=== PATIENT | female | born 1935 | race Caucasian/White ===

== ENCOUNTER → 2016-08-25 | Outpatient (CLI) | payer OTHER, BC ==
[~2016-08-25] VITALS: Ht 152.4 cm; Wt 72.0 kg
[~2016-08-25] MED LIST: ADULT LOW DOSE81 MG PO; ALDACTONE25 MG PO; ASA5UEC PO; ATIVAN0.5 MG PO; BENICAR HCT 201 EACH; BIOTIN2500 MCG PO; BUTALB-ACETAMI1 EACH PO; BYSTOLIC20 MG PO; CARDURA8 MG PO; CIPRO250 MG; CLARITIN10 MG PO; COZAAR100 MG PO; DEXILANT60 MG PO; DOCUSATE SODIU100 MG PO; FIORINAL 50-321 EACH PO; FLONASE 0.05%50 MCG NASAL; FLOVENT DISKUS50 MCG IH; IBUPROFEN 200200 M1 PO; K-DUR10 ME1; KLOR-CON 10 ER10 MEQ PO; LORTAB 5 MG/5001 TA1 PO; MACRODANTIN100 MG PO; METAMUCIL1 EAC1 PO; NORVASC10 MG PO; PEPCID AC20 M1 PO; PROBIOTIC1 EAC1 PO; SPIRONOLACTONE25 M1 PO; TUMS CHEWA500 MG/11 PO; VITAMIN D-32000 UNIT PO
--- NOTE | ~2016-08-25 | HPC ---
[facility] [place] [address] PAIN MANAGEMENT CONSULTATION Name: ANTWAN MATHEWS Room #: REG OSWALDO Escudero#: [id number] Admission: 08/25/16 Attend Phys: Booker Nino MD Discharge: Date of : 35 Report #: [id number] THIS REPORT FOR: //name// CC: Daniel Nino DATE OF SERVICE: 08/25/2016 Followup visit for low back pain with radiculopathy secondary to spondylolisthesis. The patient returns to pain clinic today for lumbar epidural injection. She has an L4 on L5 grade 1 spondylolisthesis with pain that radiates in the dermatomal distribution of L4 and L5. She has always had good response to her injections and she reports that her most recent injection provided months and months of pain relief. The pain is now returning and she would like another injection. Pain is worse with standing and weightbearing. She continues to do exercise on daily basis and likes to do pool therapy. I am not providing any medication for her pain at this time. MEDICATIONS: Reviewed and reconciled. She has some Fiorinal, which she uses for headaches and occasional Tylenol, but no other medication for severe pain. ALLERGIES: None. PHYSICAL EXAMINATION: She is a juan josé 81-year-old pleasant, alert and oriented. Her blood pressure is 135/88, heart rate is 88. She moves from a sitting to standing position, can ambulate independently. She has some limitations in range of motion. Straight leg raising reproduces pain bilaterally in the lower extremities following an L5-S1 distribution. IMPRESSION: Low back pain with radiculopathy with lumbar L4-L5 spondylolisthesis. RECOMMENDATION: Epidural steroid injection under fluoroscopic guidance. PROCEDURE: She was taken to the fluoroscopic suite, placed prone, skin prepped with ChloraPrep. Skin anesthetized over L4-L5. A 20-gauge Tuohy epidural needle was advanced in the epidural space with loss of resistance. No blood or CSF aspirated. 1 mL of Omnipaque was injected. Good spread of dye observed into the epidural space followed by 3 mL of 0.5% lidocaine mixed with 80 mg of triamcinolone. She tolerated the procedure well and was observed for 45 minutes and discharged. [facility] [address] [place] [address] PAIN MANAGEMENT CONSULTATION Name: ANTWAN MATHEWS Room #: REG [facility].#: [id number] Admission: 08/25/16 Attend Phys: Booker Nino MD Discharge: Date of : 35 Report #: [id number] Follow up visit planned as needed. By: [id number] Booker Nino MD /nt
[2016-08-25 13:22] VITALS: BP 147/77
== END | disposition home or self-care (01) ==
LOC: PAIN 07:29
DX: M54.16 Radiculopathy, lumbar region (principal); M43.16 Spondylolisthesis, lumbar region

== ENCOUNTER → 2017-10-23 | Outpatient (CLI) | payer OTHER, BC ==
[~2017-10-23] VITALS: Ht 152.4 cm; Wt 67.2 kg
[~2017-10-23] MED LIST changes: +GLUCOPHAGE XR500 MG PO
--- NOTE | ~2017-10-23 | HPC ---
[facility] [place] [place] [address] PAIN MANAGEMENT CONSULTATION Name: ANTWAN MATHEWS Room #: REG [facility] Chantal.#: [id number] Admission: 10/23/17 Attend Phys: Booker Nino MD Discharge: Date of : 35 Report #: [id number] THIS REPORT FOR: //name// CC: Daniel Nino DATE OF SERVICE: 10/23/2017 Followup visit for low back pain with radiculopathy secondary to grade 1 spondylolisthesis. The patient was last seen in the pain clinic over a year ago. She received an epidural injection at that time and pain is now returning. She was really a fine responder to these injections and the pain relief she gets is extensive and prolonged. She would like another injection today. PQRS review shows this is a pleasant 82-year-old female who is not a fall risk at this time. She is not on any blood thinners, but she is treated for hypertension. All medications were reviewed and reconciled. She takes no opioid medication. Weight has been well controlled, BMI of 28.9. PHYSICAL EXAMINATION: VITAL SIGNS: Blood pressure 140/61, heart rate 78, respirations 16. NEUROLOGIC: She moves from sitting to standing position, ambulates with mild antalgic features to her gait. She has straight leg raising pain bilaterally, worse on the right than the left; it radiates into her leg, right worse than left. IMPRESSION: Chronic low back pain with radiculopathy secondary to L4-L5 spondylolisthesis. PROCEDURE: Epidural steroid injection under fluoroscopic guidance. PROCEDURE: She was taken to fluoroscopic suite for treatment. She was placed prone, skin prepped with ChloraPrep. Skin anesthetized over the L4-L5 interspace. A 20-gauge Tuohy epidural needle advanced into the epidural space with [id number] technique. There was no blood and no CSF aspirated. 1 mL of Omnipaque injected. Spread of dye observed in the epidural space followed by 3 mL of 0.5% lidocaine mixed with 80 mg of triamcinolone. She tolerated the procedure well and was observed for a short time. Pain score was 1. Followup visit planned as needed. By: [id number] [id number] Booekr Nino MD /nt
[2017-10-23 14:01] VITALS: BP 140/61
== END | disposition home or self-care (01) ==
LOC: PAIN 06:48
DX: M48.061 Spinal stenosis, lumbar region without neurogenic claudication (principal); M54.16 Radiculopathy, lumbar region; G89.29 Other chronic pain; I10 Essential (primary) hypertension; Z88.0 Allergy status to penicillin; Z88.2 Allergy status to sulfonamides; Z88.8 Allergy status to other drugs, medicaments and biological substances; Z79.899 Other long term (current) drug therapy

== ENCOUNTER → 2018-11-08 | Outpatient (CLI) | payer OTHER, BC ==
[~2018-11-08] VITALS: Ht 152.4 cm; Wt 67.3 kg
--- NOTE | ~2018-11-08 | HPC ---
[facility] [place] [address] PAIN MANAGEMENT CONSULTATION Name: ANTWAN MATHEWS Room #: REG OSWALDO Cornejo.#: [id number] Admission: 11/08/18 ������������������ Attend Phys: Booker Nino MD Discharge: ������������������ Date of : 35 Report #: [id number] THIS REPORT FOR: //name// CC: Dipak Nino DATE OF SERVICE: 11/08/2018 Followup visit for chronic low back pain with radiculopathy secondary to grade 1 spondylolisthesis. The delightful patient is here today with her daughter. She is seen on roughly a 1-year interval. She responds nicely to epidural steroid injections, providing her with months of improvement in her pain relief and improvement in day-to-day activities. She is here today for the injection. Unfortunately, she has recently had the new shingles vaccine. We have been cautious about providing high dose steroid injection during this interval with the thought that this may interfere with the immune response. I have elected to postpone her injection for another week. She reports today that her greatest pain comes with prolonged walking. She is comfortable in a sitting position and has some pain at night when she rolls in bed. She has had increased pain in the last 2-3 weeks. Most of the pain radiates in a radicular distribution down the right posterior thigh and also she has bilateral pain in the ischial region. She complains of some tingling in both feet. It is a bit asymmetrical and does not sound like classic diabetic neuropathy. She was recently diagnosed with type 2 diabetes. She has been well controlled; however, and her A1c is less than 5.5. PQRS: 1. Reveals no significant complaints of osteoarthritis. 2. Her BMI is 29.3. 3. Vital signs: Blood pressure 138/58, heart rate 64, respirations 16, O2 sat 98. 4. Pain intensity is 6/10. 5. She is not a fall risk. 6. She is on no blood thinners. 7. She takes medications for hypertension. MEDICATIONS: All medications were reviewed and reconciled from the electronic medical record. She is taking amlodipine on a daily basis as well as spironolactone and . She takes no opioid medications. SOCIAL HISTORY: She denies use of tobacco and alcohol. [address] [address] PAIN MANAGEMENT CONSULTATION Name: ANTWAN MATHEWS Jesusita Room #: REG [facility] Chantal.#: [id number] Admission: 11/08/18 ������������������ Attend Phys: Booker Nino MD Discharge: ������������������ Date of : 35 Report #: [id number] IMPRESSION: Chronic low back pain with radiculopathy secondary to L4-L5 spondylolisthesis. She has responded very nicely to an annual epidural steroid injection. PLAN: We will repeat the injection at her followup visit scheduled in 1 week. Procedure was reviewed and explained, questions answered. ��������������������������������������������� ���������������������������������������� By: ��������������������������������������������� [id number] Booker Nino MD /hunter
[2018-11-08 15:25] VITALS: BP 138/58
--- NOTE | 2018-11-08 15:53 | NUR ---
Pain Clinic Assessment: 1. History of Osteoarthritis: Not Applicable History of Rheumatoid Arthritis: Not Applicable 2. Height: 5 ft. 0 in. 152.4 cm. Weight: 148.4 lb. oz. 67.314 kg. Patient's BMI: 29.0 3. Vital Signs: BP: 138/58 Pulse: 64 Resp: 16 Temp: 02 Sat: 98 ECG Mon: 4. Pain Intensity: 6 5. Fall Risk: Dizziness: N Needs help standing or walking: N Fallen in the last 3 months: N Fall risk comments: 6. Patient on Blood Thinner: None 7. History of Hypertension: Y 8. Opioid Therapy greater than 6 weeks: N Opiate Contract Signed: 9. Risk Assessment Tool Provided: low-0 10. Functional Assessment Tool: 70 11. Recreational Drug Use: Never Drug Type: Tobacco Use: Never Smoker Tobacco Type: Amount or Packs/day: How Many Years: Alcohol Use: No Frequency: Quant:
== END ==
LOC: PAIN 12:27
DX: M43.16 Spondylolisthesis, lumbar region (principal); M54.16 Radiculopathy, lumbar region; Z79.899 Other long term (current) drug therapy

== ENCOUNTER → 2018-11-15 | Outpatient (CLI) | payer OTHER, BC ==
[~2018-11-15] VITALS: Ht 152.4 cm; Wt 69.1 kg
[~2018-11-15] MED LIST changes: +SHINGRIX V50 MCG/0.5 IM
--- NOTE | ~2018-11-15 | HPC ---
[facility] [place] [address] PAIN MANAGEMENT CONSULTATION Name: ANTWAN MATHEWS Room #: REG OSWALDO Escudero#: [id number] Admission: 11/15/18 ������������������ Attend Phys: Booker Nino MD Discharge: ������������������ Date of : 35 Report #: [id number] THIS REPORT FOR: //name// CC: Dipak GARRETT DATE OF SERVICE: 11/15/2018 Followup visit for L4-L5 lumbar spondylosis with radiculopathy. The patient returns to pain clinic today for an epidural injection. She has pain radiating down the L4-L5 and L5-S1 distribution. She has an L4-L5 grade 1 spondylolisthesis. We were unable to perform the injection on 11/08/2018. She is here today for the injection. There have been no changes. IMPRESSION: Lumbar radiculopathy secondary to L4-L5 spondylolisthesis. PROCEDURE: Epidural steroid injection under fluoroscopic guidance. She was taken to fluoroscopic suite, placed prone, skin prepped with ChloraPrep. Skin anesthetized over the L4-L5 interspace. A 20-gauge Tuohy epidural needle advanced first attempt in the epidural space with loss of resistance. There was no blood or CSF aspirated. A 1 mL of Omnipaque injected with good spread of dye observed in the epidural space followed by 3 mL of 0.5% lidocaine mixed with 80 mg of triamcinolone. She tolerated the procedure well and was observed for 45 minutes and discharged. Followup visit as needed. ��������������������������������������������� ���������������������������������������� By: ��������������������������������������������� [id number] Booker Nino MD /nt
[2018-11-15 12:25] VITALS: BP 134/70
--- NOTE | 2018-11-15 12:29 | NUR ---
Pain Clinic Assessment: 1. History of Osteoarthritis: Not Applicable History of Rheumatoid Arthritis: Not Applicable 2. Height: 5 ft. 0 in. 152.4 cm. Weight: 152.4 lb. oz. 69.128 kg. Patient's BMI: 29.8 3. Vital Signs: BP: 134/70 Pulse: 62 Resp: 16 Temp: 02 Sat: ECG Mon: 4. Pain Intensity: 6 5. Fall Risk: Dizziness: N Needs help standing or walking: N Fallen in the last 3 months: N Fall risk comments: 6. Patient on Blood Thinner: None 7. History of Hypertension: Y 8. Opioid Therapy greater than 6 weeks: N Opiate Contract Signed: 9. Risk Assessment Tool Provided: low-0 10. Functional Assessment Tool: 11. Recreational Drug Use: Never Drug Type: Tobacco Use: Never Smoker Tobacco Type: Amount or Packs/day: How Many Years: Alcohol Use: No Frequency: Quant:
== END | disposition home or self-care (01) ==
LOC: PAIN 06:56
DX: M43.16 Spondylolisthesis, lumbar region (principal); M54.16 Radiculopathy, lumbar region; Z88.0 Allergy status to penicillin; Z88.2 Allergy status to sulfonamides; Z88.8 Allergy status to other drugs, medicaments and biological substances; Z79.899 Other long term (current) drug therapy; Z79.84 Long term (current) use of oral hypoglycemic drugs

== ENCOUNTER → 2018-12-10 | Outpatient (CLI) | payer OTHER, BC ==
[~2018-12-10] VITALS: Ht 152.4 cm; Wt 66.4 kg
--- NOTE | ~2018-12-10 | HPC ---
[facility] [place] [address] PAIN MANAGEMENT CONSULTATION Name: ANTWAN MATHEWS Room #: REG OSWALDO Kota#: [id number] Admission: 12/10/18 Attend Phys: Booker Nino MD Discharge: Date of : 35 Report #: [id number] THIS REPORT FOR: //name// CC: Physician staff Booker GARRETT DATE OF SERVICE: 12/10/2018 Followup visit for lumbar radiculopathy. The patient returns to pain clinic today for a second epidural steroid injection. She has responded nicely to epidural injections over the years. Her first injection was in 2013. She had 2 injections in 2014, but every year thereafter, she had a single injection and treatment. Her injection helped, but does not feel this has helped as much as previous injections. We reviewed films and all of her injections have been performed at L4-L5. Given her limited response to the first injection and pain in L4-L5, I have agreed today that we should repeat the injection. PQRS was completed once again. 1. No history of osteoarthritis. 2. BMI of 28.6. 3. Vital signs 132/62, heart rate 73, respirations 16. 4. Pain intensity 4/10. 5. She is not a fall risk. 6. She is on no blood thinners. 7. No history of hypertension. 8. She takes no opioids. 9. She is at low risk for addiction. 10. Functional assessment tool was not completed. She denies tobacco and alcohol. PHYSICAL EXAMINATION: Moves from sitting to standing position with mildly antalgic gait. She has some tenderness across her low back. She complains of some slight decrease in sensation in both feet. Normal strength is noted. IMPRESSION: 1. Lumbar radiculopathy secondary to L4-L5 spondylolisthesis. 2. Spinal stenosis. RECOMMENDATION: Epidural steroid injection under fluoroscopic guidance. PROCEDURE: She was taken to fluoroscopic suite, placed prone, skin was prepped with ChloraPrep. Skin was anesthetized over the L4-L5 interspace and a 20-gauge Tuohy epidural needle advanced first attempt into the epidural space with loss [facility] [address] [place] [address] PAIN MANAGEMENT CONSULTATION Name: ANTWAN MATHEWS Room #: REG [facility] [id number] Admission: 12/10/18 Attend Phys: Booker Nino MD Discharge: Date of : 35 Report #: [id number] of resistance technique. There was no blood and CSF aspirated. A 1 mL of Omnipaque was injected. Good spread of dye observed in the epidural space followed by 3 mL of 0.5% lidocaine mixed with 80 mg triamcinolone. She tolerated the procedure well and was observed for 45 minutes and discharged. Followup visit planned as needed. By: [id number] 0025 Booker Nino MD /nt
[2018-12-10 11:25] VITALS: BP 132/62
--- NOTE | 2018-12-10 11:34 | NUR ---
Pain Clinic Assessment: 1. History of Osteoarthritis: Not Applicable History of Rheumatoid Arthritis: Not Applicable 2. Height: 5 ft. 0 in. 152.4 cm. Weight: 146.4 lb. oz. 66.407 kg. Patient's BMI: 28.6 3. Vital Signs: BP: 132/62 Pulse: 73 Resp: 16 Temp: 02 Sat: 100 ECG Mon: 4. Pain Intensity: 4-5 5. Fall Risk: Dizziness: N Needs help standing or walking: N Fallen in the last 3 months: N Fall risk comments: 6. Patient on Blood Thinner: None 7. History of Hypertension: Y 8. Opioid Therapy greater than 6 weeks: N Opiate Contract Signed: 9. Risk Assessment Tool Provided: low-0 10. Functional Assessment Tool: 70 11. Recreational Drug Use: Never Drug Type: Tobacco Use: Never Smoker Tobacco Type: Amount or Packs/day: How Many Years: Alcohol Use: No Frequency: Quant:
== END | disposition home or self-care (01) ==
LOC: PAIN 06:57
DX: M43.16 Spondylolisthesis, lumbar region (principal); M54.16 Radiculopathy, lumbar region; M48.061 Spinal stenosis, lumbar region without neurogenic claudication; G89.29 Other chronic pain; Z88.0 Allergy status to penicillin; Z88.2 Allergy status to sulfonamides; Z88.8 Allergy status to other drugs, medicaments and biological substances; Z79.899 Other long term (current) drug therapy; Z98.890 Other specified postprocedural states

== ENCOUNTER → 2019-03-25 | Outpatient (CLI) | payer OTHER, BC ==
[~2019-03-25] VITALS: Ht 152.4 cm; Wt 67.1 kg
[2019-03-25 11:34] LABS: ABSOLUTE NEUTROPHILS 6.1 thou/uL (1.4-8.2); BASOPHILS 1.9 % (0.0-2.0); EOSINOPHILS 9.2 % (0.0-3.0); HEMATOCRIT 31.5 % (37.0-47.0); HEMOGLOBIN 10.6 gm/dL (12.0-15.0); MCH 36.4 pg (26.0-34.0); MCHC 33.6 g/dL (28.0-37.0); MCV 108.3 fL (80.0-100.0); MONOCYTES 6.3 % (1.0-8.0); PLATELET COUNT 343 thou/uL (150-400); POLYS 66.6 % (36.0-66.0); RDW 18.9 % (10.5-14.5); WBC 9.2 thou/uL (4.0-11.0)
[2019-03-25 11:42] LABS: APTT 24.7 Seconds (24.5-32.8); CALCIUM 9.7 mg/dL (8.5-10.1); CREATININE 0.9 mg/dL (0.6-1.0); INR 1.1; POTASSIUM 4.1 mmol/L (3.5-5.1); PROTIME 11.2 Seconds (9.3-11.4)
[2019-03-25 11:48] LABS: ALBUMIN 4.3 g/dL (3.4-5.0); TOTAL BILIRUBIN 0.4 mg/dL (<0.1-1.0); TOTAL PROTEIN 7.1 g/dL (6.4-8.2)
[2019-03-25 11:52] VITALS: BP 127/48
[2019-03-25 11:52] LABS: ANISOCYTOSIS 2+; MACROCYTES 1+; PLATELET ESTIMATE NORMAL; POIKILOCYTOSIS 2+
--- NOTE | 2019-03-29 11:23 | P ---
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 HISTORY OF PRESENT ILLNESS: The patient is an 83-year-old female with history of sick sinus syndrome, whose device is near BIRELLE. We are performing a pacemaker generator exchange pre-elective replacement interval due to pacemaker syndrome when the device previously reached BRIELLE resulting in near syncope. ANESTHESIA: The patient underwent MAC anesthesia with no anesthesia related complications. DESCRIPTION OF PROCEDURE: The patient underwent informed consent. We discussed the details of the procedure including the risks, which include but not limited to bleeding, infection and need for possible lead revisions. She understood these risks and is willing to proceed. The patient was brought to the EP laboratory in a fasting and sedated state, prepped and draped in a sterile fashion. Next, I injected lidocaine at the right-sided incision. Incision was made and the old device was removed from the pocket. The device was disconnected. New device was connected. Tug tests were performed and the device was placed in the pocket. The pocket was irrigated with vancomycin solution and then the pocket was closed in 2 layers using 2-0 for the deep layer and surgical glue for the outer skin layer. The patient awoke neurologically and hemodynamically intact. No complications and no significant bleeding. The explanted pacemaker was a Medtronic product #ADDR01, serial #[id number]. This was implanted back in 02/2010. The new device was a Medtronic model #W3DR01, serial # [id number]. Both the atrial and ventricular leads are Medtronics and were implanted on 09/10/2002. These are passive fixation leads. The atrial lead was model #736338, serial #[id number]. The ventricular lead was model #163971, serial #[id number]. The atrial lead demonstrated P-wave of 1.5 millivolts, pacing impedance of 342 ohms and pacing threshold 0.5 volts at 0.4 milliseconds. The RV lead demonstrated R-wave of 4.8 millivolts, pacing impedance of 418 ohms and pacing threshold of 2 volts at 0.4 milliseconds. The device was programmed to the DDDR 60-130 mode. [facility] [address] [place] [address] PROCEDURE REPORT Name: ANTWAN MATHEWS Room #: REG OSWALDO Escudero#: [id number] Admission: 03/25/19 Attend Phys: Bryant Quiroga MD Discharge: Date of : 35 Report #: [id number] CONCLUSIONS: 1. Successful dual-chamber pacemaker generator exchange. 2. Satisfactory atrial and ventricular pacing and sensing thresholds. <ELECTRONICALLY SIGNED> By: Bryant Quiroga MD 03/29/19 1123 1344 Bryant Quiroga MD /nt
== END | disposition home or self-care (01) ==
LOC: CATH 09:37
PROVIDERS: Internal Medicine Cardiovascular Disease
DX: Z45.010 Encounter for checking and testing of cardiac pacemaker pulse generator [battery] (principal); I49.5 Sick sinus syndrome; I10 Essential (primary) hypertension; E11.9 Type 2 diabetes mellitus without complications; Z90.49 Acquired absence of other specified parts of digestive tract; Z98.890 Other specified postprocedural states; Z79.899 Other long term (current) drug therapy; Z88.0 Allergy status to penicillin; Z88.2 Allergy status to sulfonamides; Z79.01 Long term (current) use of anticoagulants
CPT/HCPCS: 62110; 62900; 70005

== ENCOUNTER → 2019-05-20 | Outpatient (CLI) | payer OTHER, BC ==
[~2019-05-20] VITALS: Ht 152.4 cm; Wt 69.2 kg
[~2019-05-20] MED LIST changes: +TORSEMIDE10 MG PO
--- NOTE | ~2019-05-20 | HPC ---
[facility] [address] [place] [address] PAIN MANAGEMENT CONSULTATION Name: ANTWAN MATHEWS Room #: REG OSWALDO Escudero#: [id number] Admission: 05/20/19 Attend Phys: Booker Nino MD Discharge: Date of : 35 Report #: [id number] THIS REPORT FOR: //name// CC: Physician staff Booker GARRETT DATE OF SERVICE: 05/20/2019 Followup visit for low back pain with radiculopathy. The patient returns to clinic today with her daughter. She is continuing to have pain in her back and into her legs. It is affecting her mobility and her day-to-day activities. She complains it is affecting her mental attitude as well. There are many things that she normally would do without thought that are now more challenging and she is raising questions in her head about whether or not she should leave the house to go shopping and/or do any of her other normal activities. This is bothering her quite a bit and she does not want to feel old! we get it! Her MRI is dated. She does have an L4-L5 spondylolisthesis. We were unable to perform an MRI previously due to an older model of a pacemaker. She has now had that replaced and we believe that it will allow her to undergo an MRI so we would have a better idea of the degree of stenosis, any changes in her anterolisthesis. This would allow her to possibly undergo or be a candidate for a procedure for neurogenic claudication. First, I would like to see the films and I think it is quite appropriate that we order an MRI without contrast. PQRS: Positive for osteoarthritis involving her hands, mostly her right middle finger. Her BMI is 29.8, blood pressure 139/65, heart rate 71. Her O2 sat is 98. She breathes easily at rest and moving. Pain intensity is a 5/10 which is tolerable for her, but it interferes with activities. She has not fallen. She is on no blood thinning medications, but has a history of hypertension which is treated by primary care physician and Dr. Fitzpatrick. She does not have any desire to use stronger pain medications beyond nonsteroidal anti-inflammatory medications. We discussed at length the side effects from those medicines. She denies tobacco or alcohol. PHYSICAL EXAMINATION: GENERAL: She is a pleasant youthful appearing 83-year-old. She moves independently from sitting to standing position, her gait is mildly antalgic, but brisk. Her spine is tender across the lumbosacral segment. She has pain with forward flexion, extension and she has mild straight leg raising discomfort, radiating pain into the back of her legs to the thigh. Pain is worse on the right than the left. [address] [address] PAIN MANAGEMENT CONSULTATION Name: ANTWAN MATHEWS Room #: REG CL Kota#: [id number] Admission: 05/20/19 Attend Phys: Booker Nino MD Discharge: Date of : 35 Report #: [id number] IMPRESSION: Low back pain with radiculopathy, anterolisthesis known at L4-L5. RECOMMENDATIONS: 1. Repeat MRI scan without contrast. 2. Followup for repeat epidural injection. We may alter our approach depending on the results of the x-ray. 3. Consider other treatment options once we have better diagnostic information. 4. Cautious use of nonopioid medications for pain. By: [id number] Booker Nino MD /nt
[2019-05-20 11:09] VITALS: BP 139/65
--- NOTE | 2019-05-20 11:46 | NUR ---
Pain Clinic Assessment: 1. History of Osteoarthritis: RIGHT MIDDLE FINGER History of Rheumatoid Arthritis: NO 2. Height: 5 ft. 0 in. 152.4 cm. Weight: 152.6 lb. oz. 69.219 kg. Patient's BMI: 29.8 3. Vital Signs: BP: 139/65 Pulse: 71 Resp: 16 Temp: 02 Sat: 98 ECG Mon: 4. Pain Intensity: 5 5. Fall Risk: Dizziness: N Needs help standing or walking: N Fallen in the last 3 months: N Fall risk comments: 6. Patient on Blood Thinner: None 7. History of Hypertension: Y 8. Opioid Therapy greater than 6 weeks: N Opiate Contract Signed: 9. Risk Assessment Tool Provided: low-0 10. Functional Assessment Tool: 11. Recreational Drug Use: Never Drug Type: Tobacco Use: Never Smoker Tobacco Type: Amount or Packs/day: How Many Years: Alcohol Use: No Frequency: Quant:
== END ==
LOC: PAIN 06:44
DX: M43.16 Spondylolisthesis, lumbar region (principal); M54.16 Radiculopathy, lumbar region; I10 Essential (primary) hypertension; M19.041 Primary osteoarthritis, right hand; Z95.0 Presence of cardiac pacemaker; Z79.891 Long term (current) use of opiate analgesic; Z79.899 Other long term (current) drug therapy

== ENCOUNTER → 2019-05-31 | Outpatient (CLI) | payer OTHER, BC | LOC: MRI 06:59 | DX: M54.16 Radiculopathy, lumbar region (principal); Z95.0 Presence of cardiac pacemaker ==

== ENCOUNTER → 2019-06-05 | Outpatient (CLI) | payer OTHER, BC | LOC: SJCVC 15:40 | DX: Z45.018 Encounter for adjustment and management of other part of cardiac pacemaker (principal); R94.31 Abnormal electrocardiogram [ECG] [EKG]; I49.5 Sick sinus syndrome; I10 Essential (primary) hypertension; I48.0 Paroxysmal atrial fibrillation; Z79.899 Other long term (current) drug therapy; Z79.84 Long term (current) use of oral hypoglycemic drugs ==

== ENCOUNTER → 2019-06-10 | Outpatient (CLI) | payer OTHER, BC ==
[~2019-06-10] VITALS: Ht 152.4 cm; Wt 67.9 kg
--- NOTE | ~2019-06-10 | HPC ---
[facility] [place] [address] [address] PAIN MANAGEMENT CONSULTATION Name: ANTWAN MATHEWS Room #: REG OSWALDO Chantal.#: [id number] Admission: 06/10/19 Attend Phys: Booker Nino MD Discharge: Date of : 35 Report #: [id number] THIS REPORT FOR: cc: GISELL EMERSON MD Physician not on staff Booker Nino MD ~ THIS REPORT FOR: //name// CC: Physician staff Booker Emerson DATE OF SERVICE: 06/10/2019 Followup visit to review MRI and for lumbar epidural steroid injection. The patient returns to pain clinic today with her daughter. I asked for an MRI at her most recent visit and that scan was performed at [facility] 1 week ago. I have been able to review the films and the report and I have reviewed them with the patient as well. New findings are of significant spinal stenosis at L2-L3 with facet spurring disk bulging and a very thick ligamentum flavum. Also at L3-L4, there is severe and marked spinal stenosis with stenosis at the level of 4-5 mm anterior-posterior. Spinal stenosis of a severe nature is also seen at lumbar 4-5. It opens back up at L5-S1. This would be consistent with her symptoms suggesting some neurogenic claudication. Walking is troublesome for her and the longer she is on her feet, the worse the pain would be. PQRS is unchanged from most recent visit. PHYSICAL EXAMINATION: Pleasant female. Blood pressure is 117/51, heart rate 64, respirations 16, O2 sat 99. Pain intensity 4/10. Moves independently. Gait is mildly antalgic. Pain across the lumbosacral segment with forward flexion and extension, reproducing pain bilaterally across the hips and pain radiates down into the legs in the L3 through L5 distribution, worse right than the left today. Pain is however bilateral. IMPRESSION: 1. Severe spinal stenosis, 3 levels. 2. Neurogenic claudication. RECOMMENDATION: Epidural steroid injection under fluoroscopic guidance. PROCEDURE NOTE: After informed consent, she was taken to fluoroscopic suite, [address] [address] PAIN MANAGEMENT CONSULTATION Name: ANTWAN MATHEWS Room #: REG [facility].#: [id number] Admission: 06/10/19 Attend Phys: Booker Nino MD Discharge: Date of : 35 Report #: [id number] placed prone, skin prepped with ChloraPrep. Skin was anesthetized over the L3-L4 interspace. A 20-gauge Tuohy epidural needle was advanced on the first attempt into the epidural space with loss of resistance technique. There was no blood or CSF aspirated. Omnipaque 0.5 mL was injected. Spread of dye was seen spreading along rapidly to the anterior epidural space and cephalad. There was no CSF aspirated. I then injected a total of 3 mL of 0.15% lidocaine well diluted due to the anterior spread along with 80 mg of triamcinolone. She tolerated the procedure well, was observed for 30 minutes and discharged. Followup visit planned as needed. Further injections may be considered in the future. We also discussed both MILD, minimally invasive lumbar decompression as a possible option in the future, although she has multiple levels. We are expanding our use of this procedure somewhat. I also suggested that decompressive laminectomy may be in future as well given the degree of stenosis. We will see how she responds to this injection. By: [id number] Booker Nino MD /nt
[2019-06-10 14:41] VITALS: BP 117/51
--- NOTE | 2019-06-10 15:00 | NUR ---
Pain Clinic Assessment: 1. History of Osteoarthritis: RIGHT MIDDLE FINGER History of Rheumatoid Arthritis: NO 2. Height: 5 ft. 0 in. 152.4 cm. Weight: 149.6 lb. oz. 67.858 kg. Patient's BMI: 29.2 3. Vital Signs: BP: 117/51 Pulse: 64 Resp: 16 Temp: 02 Sat: 99 ECG Mon: 4. Pain Intensity: 4 5. Fall Risk: Dizziness: N Needs help standing or walking: N Fallen in the last 3 months: N Fall risk comments: 6. Patient on Blood Thinner: None 7. History of Hypertension: Y 8. Opioid Therapy greater than 6 weeks: N Opiate Contract Signed: 9. Risk Assessment Tool Provided: low-0 10. Functional Assessment Tool: 34/ 11. Recreational Drug Use: Never Drug Type: Tobacco Use: Never Smoker Tobacco Type: Amount or Packs/day: How Many Years: Alcohol Use: No Frequency: Quant:
== END | disposition home or self-care (01) ==
LOC: PAIN 06:59
DX: M48.062 Spinal stenosis, lumbar region with neurogenic claudication (principal); M54.16 Radiculopathy, lumbar region; Z98.890 Other specified postprocedural states; Z79.899 Other long term (current) drug therapy; Z88.0 Allergy status to penicillin; Z88.2 Allergy status to sulfonamides; Z88.8 Allergy status to other drugs, medicaments and biological substances

== ENCOUNTER → 2019-07-04 | Outpatient (CLI) | payer OTHER, BC | LOC: SJCVC 14:36 | DX: R94.31 Abnormal electrocardiogram [ECG] [EKG] (principal); I35.0 Nonrheumatic aortic (valve) stenosis; E78.5 Hyperlipidemia, unspecified; I49.5 Sick sinus syndrome; I48.0 Paroxysmal atrial fibrillation; I10 Essential (primary) hypertension; I38 Endocarditis, valve unspecified; E11.9 Type 2 diabetes mellitus without complications; Z95.0 Presence of cardiac pacemaker; Z90.49 Acquired absence of other specified parts of digestive tract; Z90.722 Acquired absence of ovaries, bilateral; Z79.899 Other long term (current) drug therapy ==

== ENCOUNTER → 2019-09-26 | Outpatient (CLI) | payer OTHER, BC ==
[~2019-09-26] VITALS: Ht 152.4 cm; Wt 68.4 kg
[2019-09-26 14:29] VITALS: BP 135/63
--- NOTE | 2019-09-26 14:43 | NUR ---
Pain Clinic Assessment: 1. History of Osteoarthritis: RIGHT MIDDLE FINGER BACK History of Rheumatoid Arthritis: Not Applicable 2. Height: 5 ft. 0 in. 152.4 cm. Weight: 150.8 lb. oz. 68.402 kg. Patient's BMI: 29.5 3. Vital Signs: BP: 135/63 Pulse: 84 Resp: 18 Temp: 02 Sat: 94 ECG Mon: 4. Pain Intensity: 5-6 5. Fall Risk: Dizziness: N Needs help standing or walking: N Fallen in the last 3 months: N Fall risk comments: 6. Patient on Blood Thinner: None 7. History of Hypertension: Y 8. Opioid Therapy greater than 6 weeks: N Opiate Contract Signed: 9. Risk Assessment Tool Provided: low-0 10. Functional Assessment Tool: 11. Recreational Drug Use: Never Drug Type: Tobacco Use: Never Smoker Tobacco Type: Amount or Packs/day: How Many Years: Alcohol Use: No Frequency: Quant:
--- NOTE | 2019-10-10 12:16 | HPC ---
[facility] [place] [address] [place] [address] PAIN MANAGEMENT CONSULTATION Name: ANTWAN MATHEWS Room #: REG [facility].#: [id number] Admission: 09/26/19 Attend Phys: Booker Nino MD Discharge: Date of : 35 Report #: [id number] THIS REPORT FOR: cc: NO FAMILY PHYSICIAN or PCP NO FAMILY PHYSICIAN or PCP Booker Nino MD ~ CC: NO PCP Booker Nino DATE OF SERVICE: 09/26/2019 Followup visit for severe spinal stenosis and radiculopathy. The patient returns to pain clinic today reporting outstanding results from her most recent epidural injection performed in April. That injection was performed just above her stenosis at L3-L4. We had reviewed her MRI that demonstrated multilevel spinal stenosis. At 83, she is not anxious to have surgery, but her stenosis is pretty severe at L3-L4 and also L4-L5 where we see trefoil-type central stenosis of 4-5 mm at L3-L4 and 6-7 mm at L4-L5. She has an L4-L5 spondylolisthesis as well. Over the years, we have injected her variably at different locations. This location just below the L3-L4 level looks to be the best and seems to be best based upon her response. PQRS REVIEW: She has some osteoarthritis, mostly focused in her low back, but she also has some hand pain with arthritis in her middle finger of her right hand. BMI is stable at 29.5, blood pressure 135/63, heart rate 84, respirations 18, O2 sat 94. Pain intensity is 5/6. She is not a fall risk and has not fallen in the last [address] Fitzpatrick. She is not on a blood thinner, but is treated for hypertension. She takes no opioids and has completed an opioid risk tool and scored 0. Functional assessment score is 34, that is a pretty good management score and has been stable for some time. She denies use of tobacco or alcohol. IMPRESSION: Chronic low back pain with severe spinal stenosis. Excellent response to epidural injection 5 months ago. PROCEDURE: Repeat epidural injection under fluoroscopic guidance, L3-L4. DESCRIPTION OF PROCEDURE: She was taken to fluoroscopic suite, placed prone, skin prepped with ChloraPrep. Skin anesthetized over L3-L4. Using biplanar fluoroscopic views, I advanced the needle in the epidural space using loss of resistance. There was no blood, no CSF aspirated. A 0.25 mL of Omnipaque was injected. The dye mostly went cephalad. I repositioned the needle a little bit lower and got an almost exact epidurogram compared to her prior so I am hopeful that she will have similar results. I injected 3 mL of 0.5% lidocaine mixed [address] [address] PAIN MANAGEMENT CONSULTATION Name: ANTWAN MATHEWS Room #: REG CL[facility]ud[facility]#: [id number] Admission: 09/26/19 Attend Phys: Booker Nino MD Discharge: Date of : 35 Report #: [id number] with 80 mg of triamcinolone. She tolerated the procedure well and was observed for 45 minutes and discharged. Followup visit planned in the pain clinic on an as needed basis in the future. No medications were ordered. <ELECTRONICALLY SIGNED> By: Booker Nino MD 10/10/19 [id number] Booker Nino MD /nt
== END | disposition home or self-care (01) ==
LOC: PAIN 07:01
PROVIDERS: ATTEND Anesthesiology Pain Medicine
DX: M54.5 Low back pain (principal); G89.29 Other chronic pain; M48.061 Spinal stenosis, lumbar region without neurogenic claudication; M19.90 Unspecified osteoarthritis, unspecified site; I10 Essential (primary) hypertension; Z98.890 Other specified postprocedural states; Z79.899 Other long term (current) drug therapy; Z88.0 Allergy status to penicillin; Z88.2 Allergy status to sulfonamides; Z88.8 Allergy status to other drugs, medicaments and biological substances

== ENCOUNTER → 2020-01-16 | Outpatient (CLI) | payer OTHER, BC ==
[~2020-01-16] VITALS: Ht 152.4 cm; Wt 66.3 kg
--- NOTE | ~2020-01-16 | HPC ---
[facility] [address] [place] [address] PAIN MANAGEMENT CONSULTATION Name: ANTWAN MATHEWS Room #: REG Nabeel Chantal.#: [id number] Admission: 01/16/20 Attend Phys: Booker Nino MD Discharge: Date of : 35 Report #: [id number] THIS REPORT FOR: cc: FILIPPO EMERSON Physician not on staff Booker Nino MD ~ CC: Dr. Filippo Emerson Physician staff Booker EMERSON DATE OF SERVICE: 01/16/2020 Followup visit for chronic spinal stenosis and lumbar radiculopathy. The patient is an excellent responder to epidural injections for treatment of spinal stenosis. She is here today for repeat epidural injection. Her last injection was in September and she received months of excellent pain relief. Now, the pain is now returning; she would like another injection. We reviewed 2 previous injections, which were performed at the same level. Injections have been performed at the L3-L4 level. She has ____ type spinal stenosis at 3-4 and at 4-5. Given her excellent response to this level, I will continue to inject her there. Potential benefits and risks have been reviewed with her on each visit; she would like to go forward. There have been no significant changes in her health history. We reviewed all of her medications. She denies use of tobacco and alcohol. She is not on opioids. She has a history of hypertension, under treatment. No falls in the last 3 months. She has some osteoarthritis in her fingers and hands. PHYSICAL EXAMINATION: VITAL SIGNS: Blood pressure 135/63, heart rate 84, respirations 18, O2 sat 94. The patient's BMI is 29. GENERAL: She moves independently from sitting to standing position, ambulates without difficulty. CHEST: Clear. CARDIAC: Rhythm is regular. MUSCULOSKELETAL: She has tenderness across the lumbosacral segment as well as in the mid lumbar spine. She has pain with both flexion and extension. Straight leg raising reproduces pain that follows an L3-L4 distribution. IMPRESSION: Lumbar radiculopathy. RECOMMENDATIONS: Epidural injection under fluoroscopic guidance, L3-L4. PROCEDURE NOTE: After both written and informed consent to include risk of [facility] [address] [place] [address] PAIN MANAGEMENT CONSULTATION Name: ANTWAN MATHEWS Room #: REG [facility]#: [id number] Admission: 01/16/20 Attend Phys: Booker Nino MD Discharge: Date of : 35 Report #: [id number] spinal cord damage, increased pain, weakness and dural puncture, the patient was taken to the fluoroscopy suite, placed in the prone position. After sterile prep and drape, a skin wheal with lidocaine was raised. A 22-gauge epidural Tuohy needle was inserted in the midline at L3-L4 with good loss to resistance. Negative aspiration for cerebrospinal fluid or blood was noted. Then 1 mL of Omnipaque under biplanar fluoroscopy showed good spread within the epidural space. This was followed with 80 mg of triamcinolone ____ 0.5 mL lidocaine was then injected to flush the needle; it was removed. The patient was monitored for an appropriate period of time and discharged in good and stable condition. Followup visit planned as needed. No scheduled appointment at this time. By: [id number] Booker Nino MD /nt
[2020-01-16 10:20] VITALS: BP 112/52
--- NOTE | 2020-01-16 10:31 | NUR ---
Pain Clinic Assessment: 1. History of Osteoarthritis: RIGHT MIDDLE FINGER BACK History of Rheumatoid Arthritis: Not Applicable 2. Height: 5 ft. 0 in. 152.4 cm. Weight: 146.2 lb. oz. 66.316 kg. Patient's BMI: 28.6 3. Vital Signs: BP: 112/52 Pulse: 62 Resp: 14 Temp: 02 Sat: 98 ECG Mon: 4. Pain Intensity: 6 5. Fall Risk: Dizziness: N Needs help standing or walking: N Fallen in the last 3 months: N Fall risk comments: 6. Patient on Blood Thinner: None 7. History of Hypertension: Y 8. Opioid Therapy greater than 6 weeks: N Opiate Contract Signed: 9. Risk Assessment Tool Provided: low-0 10. Functional Assessment Tool: 11. Recreational Drug Use: Never Drug Type: Tobacco Use: Never Smoker Tobacco Type: Amount or Packs/day: How Many Years: Alcohol Use: No Frequency: Quant:
== END | disposition home or self-care (01) ==
LOC: PAIN 06:54
PROVIDERS: ATTEND Anesthesiology Pain Medicine
DX: M54.16 Radiculopathy, lumbar region (principal); M48.061 Spinal stenosis, lumbar region without neurogenic claudication; G89.29 Other chronic pain; I10 Essential (primary) hypertension; Z98.890 Other specified postprocedural states; Z79.899 Other long term (current) drug therapy; M19.90 Unspecified osteoarthritis, unspecified site

== ENCOUNTER → 2020-03-04 | Outpatient (CLI) | payer OTHER, BC | LOC: SJCVCIMAG 06:49 | PROVIDERS: ATTEND Internal Medicine Cardiovascular Disease | DX: I08.3 Combined rheumatic disorders of mitral, aortic and tricuspid valves (principal); I27.20 Pulmonary hypertension, unspecified; I11.9 Hypertensive heart disease without heart failure; I49.5 Sick sinus syndrome; I48.0 Paroxysmal atrial fibrillation; I10 Essential (primary) hypertension; E78.5 Hyperlipidemia, unspecified; M48.00 Spinal stenosis, site unspecified; E11.9 Type 2 diabetes mellitus without complications; Z95.0 Presence of cardiac pacemaker; Z79.899 Other long term (current) drug therapy; Z79.84 Long term (current) use of oral hypoglycemic drugs ==

== ENCOUNTER → 2020-07-06 | Outpatient (CLI) | payer OTHER, BC ==
[~2020-07-06] VITALS: Ht 152.4 cm; Wt 64.1 kg
[2020-07-06 13:47] VITALS: BP 102/48
--- NOTE | 2020-07-06 13:58 | NUR ---
Pain Clinic Assessment: 1. History of Osteoarthritis: RIGHT MIDDLE FINGER BACK History of Rheumatoid Arthritis: Not Applicable 2. Height: 5 ft. 0 in. 152.4 cm. Weight: 141.4 lb. oz. 64.139 kg. Patient's BMI: 27.6 3. Vital Signs: BP: 102/48 Pulse: 67 Resp: 14 Temp: 02 Sat: 96 ECG Mon: 4. Pain Intensity: 6 5. Fall Risk: Dizziness: N Needs help standing or walking: Y Fallen in the last 3 months: N Fall risk comments: 6. Patient on Blood Thinner: None 7. History of Hypertension: Y 8. Opioid Therapy greater than 6 weeks: N Opiate Contract Signed: 9. Risk Assessment Tool Provided: low-0 10. Functional Assessment Tool: 11. Recreational Drug Use: Never Drug Type: Tobacco Use: Never Smoker Tobacco Type: Amount or Packs/day: How Many Years: Alcohol Use: No Frequency: Quant:
== END ==
LOC: PAIN 05-18 06:50
PROVIDERS: ATTEND Anesthesiology Pain Medicine
DX: M54.16 Radiculopathy, lumbar region (principal); G89.29 Other chronic pain; M48.061 Spinal stenosis, lumbar region without neurogenic claudication

== ENCOUNTER → 2020-12-17 | Outpatient (CLI) | payer OTHER, BC ==
[~2020-12-17] VITALS: Ht 152.4 cm; Wt 63.0 kg
[~2020-12-17] MED LIST changes: +DOXYCYCLINE 10100 M2 PO; +PLAVIX 75 MG TA75 MG PO
[2020-12-17 14:08] VITALS: BP 109/47
--- NOTE | 2020-12-17 14:23 | NUR ---
Pain Clinic Assessment: 1. History of Osteoarthritis: RIGHT MIDDLE FINGER BACK History of Rheumatoid Arthritis: Not Applicable 2. Height: 5 ft. 0 in. 152.4 cm. Weight: 138.8 lb. oz. 62.959 kg. Patient's BMI: 27.1 3. Vital Signs: BP: 109/47 Pulse: 72 Resp: 16 Temp: 02 Sat: 100 ECG Mon: 4. Pain Intensity: 6 5. Fall Risk: Dizziness: N Needs help standing or walking: Y Fallen in the last 3 months: N Fall risk comments: 6. Patient on Blood Thinner: Clopidogrel Bisulf(Plavix 7. History of Hypertension: Y 8. Opioid Therapy greater than 6 weeks: N Opiate Contract Signed: 9. Risk Assessment Tool Provided: low-0 10. Functional Assessment Tool: 11. Recreational Drug Use: Never Drug Type: Tobacco Use: Never Smoker Tobacco Type: Amount or Packs/day: How Many Years: Alcohol Use: No Frequency: Quant:
== END | disposition home or self-care (01) ==
LOC: PAIN 08:06
PROVIDERS: ATTEND Anesthesiology Pain Medicine
DX: M70.62 Trochanteric bursitis, left hip (principal); G89.29 Other chronic pain; M19.90 Unspecified osteoarthritis, unspecified site; Z98.890 Other specified postprocedural states; Z79.899 Other long term (current) drug therapy; Z88.0 Allergy status to penicillin; Z88.2 Allergy status to sulfonamides; Z88.8 Allergy status to other drugs, medicaments and biological substances

== ENCOUNTER → 2021-04-22 | Outpatient (CLI) | payer OTHER, BC ==
[~2021-04-22] VITALS: Ht 152.4 cm; Wt 64.5 kg
[2021-04-22 09:15] VITALS: BP 143/58
--- NOTE | 2021-04-22 09:30 | NUR ---
Pain Clinic Assessment: 1. History of Osteoarthritis: RIGHT MIDDLE FINGER BACK History of Rheumatoid Arthritis: Not Applicable 2. Height: 5 ft. 0 in. 152.4 cm. Weight: 142.2 lb. oz. 64.501 kg. Patient's BMI: 27.8 3. Vital Signs: BP: 143/58 Pulse: 70 Resp: 14 Temp: 02 Sat: 97 ECG Mon: 4. Pain Intensity: 5 5. Fall Risk: Dizziness: N Needs help standing or walking: Y Fallen in the last 3 months: N Fall risk comments: 6. Patient on Blood Thinner: None 7. History of Hypertension: Y 8. Opioid Therapy greater than 6 weeks: N Opiate Contract Signed: 9. Risk Assessment Tool Provided: low-0 10. Functional Assessment Tool: 11. Recreational Drug Use: Never Drug Type: Tobacco Use: Never Smoker Tobacco Type: Amount or Packs/day: How Many Years: Alcohol Use: No Frequency: Quant:
== END | disposition home or self-care (01) ==
LOC: PAIN 06:50
PROVIDERS: ATTEND Anesthesiology Pain Medicine
DX: M54.16 Radiculopathy, lumbar region (principal); G89.29 Other chronic pain; M54.59 Other low back pain; I10 Essential (primary) hypertension; M19.90 Unspecified osteoarthritis, unspecified site; Z98.890 Other specified postprocedural states; Z79.899 Other long term (current) drug therapy; Z88.0 Allergy status to penicillin; Z88.2 Allergy status to sulfonamides; Z88.8 Allergy status to other drugs, medicaments and biological substances